=== PATIENT | female | born 1935 | race Caucasian/White ===

== ENCOUNTER 2017-07-27 23:35 | Observation (INO) | payer MEDICARE ==
[2017-07-28 01:18] LABS: INR-International Normal Ratio 1.1; PTT 28.7 SEC (22.9-36.1)
[2017-07-28] MEDS ORDERED: Nitroglycerin 2% Ointment 1 INCH/1 GM Packet ONE ×2 (01:27→01:28)
[2017-07-28 01:32] LABS: Troponin I 0.028 ng/mL (< 0.028)
[2017-07-28 02:46] LABS: Bilirubin Negative (Negative); Blood, Urine Negative (Negative); Clarity CLEAR (Clear); Glucose, Urine (Dipstick) Negative (Negative); Leukocyte Negative (Negative); Nitrite Negative (Negative); Protein, Urine (Dipstick) Negative (Neg-Trace); Urobilinogen 0.2 mg/dL (0.2-1.0); pH, Urine 6.5 (5.0-9.0)
[2017-07-28] MEDS ORDERED: Ondansetron ODT 4 MG TAB SL PRN (02:48)
[2017-07-28] MEDS ORDERED: Ondansetron HCl/PF 4 MG/2 ML Vial IVP PRN (02:48)
[2017-07-28 03:22] VITALS: BMI 43.9
[2017-07-28 03:36] LABS: Digoxin Less than 0.15 ng/mL (0.8-2.0)
[2017-07-28] MEDS ORDERED: Nitroglycerin 0.4 MG TAB (25 Tab Bottle) PO PRN (04:17)
[2017-07-28] MEDS ORDERED: Calcium Carbonate 500 MG ChewTAB PO PRN (04:21)
[2017-07-28] MEDS ORDERED: Ondansetron ODT 4 MG TAB PO PRN (04:21)
[2017-07-28] MEDS ORDERED: Senokot 8.6 MG TAB PO PRN (04:21)
[2017-07-28] MEDS ORDERED: Acetaminophen 325 MG TAB PO PRN (04:21)
[2017-07-28 05:01] LABS: Troponin I 0.022 ng/mL (< 0.028)
--- NOTE | 2017-07-28 05:37 | HP ---
DATE OF ADMISSION: 07/28/2017 PRIMARY CARE PHYSICIAN: Dr. Nuñez. PRIMARY CONTRACT PROGRAMMER: Dr. Lentz. CHIEF COMPLAINT: Shortness of breath. CODE STATUS: FULL CODE. SURROGATE DECISION MAKER: The patient makes her own decisions with the help of her family. HISTORY OF PRESENT ILLNESS: The patient is an 82-year-old female with chronic diastolic heart failure, obstructive sleep apnea on CPAP, chronic atrial fibrillation on anticoagulation, coronary artery disease, status post stent placement and sinus node dysfunction, status post pacemaker, presented to [facility] Emergency Room with shortness of breath of one week duration. The shortness of breath was mainly on mild to moderate exertion. She also noticed bilateral lower extremity swelling. The shortness of breath was also worse on lying flat. She has also gained around 8 pounds over the past one and a half weeks. She is compliant with fluid and salt restriction. The family realized that she was out of Aldactone over the last 2 weeks. Aldactone has been restarted 2 days ago. She also had some upper back discomfort that is more or less improved. In the emergency room at [place], her O2 saturation was 96% on room air with blood pressure 164/130, pulse rate of 79, respiration of 22. Her workup was consistent with congestive heart failure. She received 40 mg IV Lasix around 10 :00 p.m. At the time of my evaluation at 4:00 a.m., shortness of breath has significantly improved after that dose of Lasix. She denies any palpitations, chest pain, lightheadedness, dizziness or syncope. PAST MEDICAL HISTORY: 1. Chronic atrial fibrillation on anticoagulation. 2. Coronary artery disease, status post mid LAD stent placement. 3. Hypertension. 4. Obstructive sleep apnea on CPAP. 5. Sinus node dysfunction status post pacemaker. 6. Gastroesophageal reflux disease. 7. Dyslipidemia. 8. Hypertension. PAST SURGICAL HISTORY: 1. Cardiac stent placement as discussed above. 2. Pacemaker insertion. 3. Bladder suspension. ALLERGIES: The patient is allergic to PROCAINE. CURRENT HOME MEDICATIONS: Patient takes 40 mg of Lasix, Aldactone 12.5 mg daily , losartan 100 mg at bedtime, Eliquis 5 mg b.i.d., aspirin 81 mg at bedtime, Lipitor 40 mg daily, digoxin 0.125 mg daily, Lexapro 20 mg at bedtime. SOCIAL HISTORY: Patient currently lives at home. No smoking, alcohol or drug use. FAMILY HISTORY: Positive for diabetes in several family members. REVIEW OF SYSTEMS: The following complete review of systems was negative, unless otherwise mentioned in the HPI or below: Constitutional: Weight loss or gain, ability to conduct usual activities. Skin: Rash, itching. Eyes: Double vision, pain. ENT/Mouth: Nose bleeding, neck stiffness, pain, tenderness. Cardiovascular: Palpitations, dyspnea on exertion, orthopnea. Respiratory: Shortness of breath, wheezing, cough, hemoptysis, fever or night sweats. Gastrointestinal: Poor appetite, abdominal pain, heartburn, nausea, vomiting, constipation, or diarrhea. Genitourinary: Urgency, frequency, dysuria, nocturia. Musculoskeletal: Pain, swelling. Neurologic/Psychiatric: Anxiety, depression. Allergy/Immunologic: Skin rash, bleeding tendency. PHYSICAL EXAMINATION: VITAL SIGNS: As discussed above. GENERAL: An 82-year-old female in no significant respiratory distress. Over the last 6 hours, her symptoms have improved after one dose of Lasix in the ER. HEENT: Head is atraumatic, normocephalic. Sclerae are anicteric. Moist mucous membranes. No oral lesion. NECK: Supple, no JVD appreciated. No carotid bruit. LUNGS: Showed scattered bibasilar rales, no wheezing or rhonchi. Lungs were symmetrical. HEART: S1, S2 present. Regular rate and rhythm. No murmurs, rubs or gallops appreciated. ABDOMEN: Soft, nontender, bowel sounds present. EXTREMITIES: 2+ edema in bilateral lower extremities. No calf tenderness. SKIN: Warm and dry. LYMPH NODES: No palpable lymph nodes in the neck. PERIPHERAL VASCULAR: Radial pulses palpable bilaterally. MUSCULOSKELETAL: No joint swelling or tenderness. LABORATORY FINDINGS: CBC showed WBC 6.3 with hemoglobin 13.3. Creatinine was 0.8 with BUN 19. Troponins were negative. Urinalysis was negative. Digoxin level was less than 0.15. BNP was 236. Sodium was 143 with potassium 3.8. X-RAY FINDINGS: Chest x-ray by my review showed pulmonary vascular congestion. EKG by my review showed atrial fibrillation. IMPRESSION: 1. Acute on chronic diastolic heart failure exacerbation. The patient was out of Aldactone for 2 weeks. This has been restarted 2 days ago. We will continue IV diuretics for one more day. The patient can probably be discharged later today or in a.m. based on her improvement. We will monitor electrolytes closely. 2. Coronary artery disease, status post left anterior descending stent placement in 2007. We will continue aspirin. 3. Chronic atrial fibrillation on anticoagulation. We will continue digoxin. Rate appears to be controlled at this time. Continue anticoagulation. 4. Obstructive sleep apnea. We will continue home CPAP. 5. Sick sinus syndrome, status post pacemaker. 6. Hypertension. We will monitor. Her last blood pressure was 128/57. 7. Dyslipidemia. We will continue statins. 8. Chronic kidney disease stage 2. 9. Morbid Obesity BMI 43. Plan of care was discussed with the patient in detail and she stated understanding. SRI
[2017-07-28] MEDS ORDERED: Furosemide 40 MG/4 ML VIAL SLOW IVP SCH ×2 (06:00→09:00)
[2017-07-28] MEDS ORDERED: Nitroglycerin 2% Ointment 1 INCH/1 GM Packet TOP SCH (06:00)
[2017-07-28 06:04] LABS: Albumin 4.3 g/dL (3.4-4.8); Anion Gap 18 mmol/L (10-20); BUN (Urea Nitrogen) 19 mg/dL (9.8-20.1); BUN/Creatinine Ratio 21.35; Calc. Creatinine Clearance 89 mL/min (70-130); Calcium 9.9 mg/dL (7.8-10.44); Carbon Dioxide 27 mmol/L (23-31); Chloride 101 mmol/L (98-107); Estimated GFR-MDRD 61; Glucose 112 mg/dL (83-110); Magnesium 2.3 mg/dL (1.6-2.6); Phosphorus 4.4 mg/dL (2.3-4.7); Sodium 142 mmol/L (136-145)
[2017-07-28] MEDS ORDERED: Aspirin 325 MG TAB PO SCH (09:00)
[2017-07-28] MEDS ORDERED: Spironolactone 25 MG TAB PO SCH (09:00)
[2017-07-28] MEDS ORDERED: Apixaban 5 MG TAB PO SCH (09:00)
[2017-07-28] MEDS ORDERED: Furosemide 20 MG/2 ML VIAL SLOW IVP SCH (09:00)
[2017-07-28] MEDS ORDERED: Digoxin 0.125 MG TAB PO SCH (09:00)
[2017-07-28 11:36] VITALS: BP 110/58; TEMP 98.3
[2017-07-28 14:36] LABS: Anion Gap 16 mmol/L (10-20); BUN (Urea Nitrogen) 18 mg/dL (9.8-20.1); Calc. Creatinine Clearance 96 mL/min (70-130); Calcium 9.5 mg/dL (7.8-10.44); Carbon Dioxide 28 mmol/L (23-31); Chloride 100 mmol/L (98-107); Estimated GFR-MDRD 66; Glucose 133 mg/dL (83-110); Potassium 3.6 mmol/L (3.5-5.1); Sodium 140 mmol/L (136-145)
[2017-07-28] MEDS ORDERED: Losartan 25 MG TAB PO SCH (21:00)
[2017-07-28] MEDS ORDERED: Escitalopram Oxalate 20 mg Tablet PO SCH (21:00)
[2017-07-28] MEDS ORDERED: Atorvastatin Calcium 40 MG TAB PO SCH (21:00)
--- NOTE | 2017-07-28 23:25 | DIS ---
PRIMARY CARE PHYSICIAN: En Nuñez D.O. PRIMARY WEAVER TIRE CORD: Dr. Lentz. DISCHARGE DIAGNOSES: 1. Acute on chronic diastolic congestive heart failure. 2. Chronic atrial fibrillation. 3. Chronic anticoagulation use. 4. Coronary artery disease. 5. Hypertension. 6. Obstructive sleep apnea, on CPAP. 7. Sinus node dysfunction, status post pacemaker placement in the past. 8. Gastroesophageal reflux disease. 9. Hyperlipidemia. 10. Obesity. CONSULTATIONS: None. PROCEDURES: None. HISTORY AND PHYSICAL: Ms. Haines is an 82-year-old female with the above history, who had been out of her medications. She requested refills, but there was some miscommunication with the pharmacy and the doctor's offices. I was able to get it. She had an 8-pound weight loss and became more short o f breath. She has had increased lower extremity swelling and shortness of breath with dyspnea on exe rtion and orthopnea. She presented to the Emergency Department for evaluation. She was 96% on room air. Bowels are relatively stable, but labs showed a BNP of 236, otherwise normal labs, and she had a chest x-ray with pulmonary vascular congestion. We were called for admission. HOSPITAL COURSE: The patient was seen and examined early this morning by Dr. Pradhan, she was restarte d on her home medications after a dose of IV Lasix. Through the day, she had markedly improved and t his afternoon I was feeling back to her baseline. Repeat labs showed her potassium level to be cindy l after the IV Lasix and she was otherwise stable for outpatient followup. PHYSCIAL EXAMINATION: The patient was seen and examined on the day of discharge. DISCHARGE PLAN: Disposition was discussed with the patient and her daughter face to face at the [facility]. DISCHARGE MEDICATIONS: 1. Eliquis 5 mg p.o. b.i.d. 2. Aspirin 81 mg p.o. at bedtime. 3. Lipitor 40 mg p.o. at bedtime. 4. Lanoxin 0.125 mg p.o. daily. 5. Docusate as needed. 6. Lasix 40 mg daily. 7. Acidophilus/pectin 1 tablet daily. 8. Lecithin 1200 mg p.o. daily. 9. Spironolactone 12.5 mg p.o. daily. 10. CoQ10. 11. Vitamin B complex 1 tablet daily. FOLLOWUP APPOINTMENTS: 1. Primary care physician, Dr. Nuñez in a week. 2. Dr. Marko Lentz in a couple weeks for his clinic schedule. DISCHARGE DIET: Heart healthy recommended. DISCHARGE ACTIVITY: Per cardiopulmonary limits. DISCHARGE CONDITION: Stable/good. DISPOSITION: Be discharged home via private vehicle with family.
--- NOTE | 2017-08-03 15:15 | EKG ---
Test Reason : REPEAT Blood Pressure : / mmHG Vent. Rate : 085 BPM Atrial Rate : 075 BPM P-R Int : 000 ms QRS Dur : 088 ms QT Int : 398 ms P-R-T Axes : 000 056 008 degrees QTc Int : 473 ms Atrial fibrillation with premature ventricular or aberrantly conducted complexes Abnormal ECG Confirmed by FE BARRIENTOS, OMI ([id number]), associate entertainment editor RONI RODRÍGUEZ ([id number]) on 08/03/2017 3:14:27 PM Referred By: Confirmed By:OMI MIRAMONTES MD
== END 2017-07-28 15:38 | disposition home or self-care (01) ==
LOC: ERS 23:35 → 2SW 07-28 00:43
PROVIDERS: ADMIT Internal Medicine; ATTEND Internal Medicine
DX: I13.0 Hypertensive heart and chronic kidney disease with heart failure and stage 1 through stage 4 chronic kidney disease, or unspecified chronic kidney disease (principal); N18.2 Chronic kidney disease, stage 2 (mild); I50.33 Acute on chronic diastolic (congestive) heart failure; I48.2 Chronic atrial fibrillation; I49.5 Sick sinus syndrome; I25.10 Atherosclerotic heart disease of native coronary artery without angina pectoris; G47.33 Obstructive sleep apnea (adult) (pediatric); K21.9 Gastro-esophageal reflux disease without esophagitis; E78.5 Hyperlipidemia, unspecified; E66.9 Obesity, unspecified; Z68.41 Body mass index [BMI] 40.0-44.9, adult; Z88.8 Allergy status to other drugs, medicaments and biological substances; Z79.01 Long term (current) use of anticoagulants; Z79.899 Other long term (current) drug therapy; Z95.5 Presence of coronary angioplasty implant and graft; Z98.890 Other specified postprocedural states; Z99.89 Dependence on other enabling machines and devices
CPT/HCPCS: 80048; 80069; 80162; 81003; 83735; 84484 ×2; 85610; 85730; 93005; 93798; 96374; 99285; G0378; 36415; J1940

== ENCOUNTER 2017-10-14 12:34 | Emergency (ER) | payer MEDICARE ==
[2017-10-14 13:11] LABS: #Basophils 0.1 thou/uL (0.0-0.2); #Eosinphils 0.1 thou/uL (0.0-0.7); #Monocytes 0.6 thou/uL (0.11-0.59); #Neutrophils 5.9 thou/uL (1.40-6.50); %Basophils 0.6 % (0.0-1.0); %Eosinophils 0.7 % (0.0-10.0); %Lymphocytes 23.3 % (21.0-51.0); %Monocytes 6.5 % (0.0-10.0); %Neutrophils 68.9 % (42.0-75.0); Hemoglobin 14.1 g/dL (12.0-16.0); Mean Corpuscular HGB CONC 32.7 g/dL (32.0-36.0); Mean Corpuscular Hemoglobin 31.6 pg (27.0-31.0); Mean Corpuscular Volume 96.6 fl (81.0-99.0); Mean Platelet Volume 6.6 fL (7.4-10.4); Platelet Count 229 thou/uL (130-400); RBC Distribution Width 14.2 % (11.5-14.5); Red Blood Cell (RBC) Count 4.48 mill/uL (4.20-5.40); White Blood Cell (WBC) Count 8.6 thou/uL (4.8-10.8)
[2017-10-14 13:24] LABS: Bilirubin Negative (Negative); Blood, Urine Negative (Negative); Clarity CLEAR (Clear); Glucose, Urine (Dipstick) Negative (Negative); Leukocyte Negative (Negative); Nitrite Negative (Negative); Protein, Urine (Dipstick) Negative (Neg-Trace); Specific Gravity, Urine 1.024 (1.002-1.036)
[2017-10-14 13:38] LABS: ALT (SGPT) 24 U/L (8-55); AST (SGOT) 24 U/L (5-34); Albumin 4.1 g/dL (3.4-4.8); Alkaline Phosphatase 86 U/L (40-150); Anion Gap 12 mmol/L (10-20); BUN (Urea Nitrogen) 25 mg/dL (9.8-20.1); Bilirubin, Total 0.9 mg/dL (0.2-1.2); Calc. Creatinine Clearance 0 mL/min (70-130); Calcium 9.7 mg/dL (7.8-10.44); Carbon Dioxide 26 mmol/L (23-31); Chloride 103 mmol/L (98-107); Estimated GFR-MDRD 57; Globulin 2.9 g/dL (2.4-3.5); Glucose 89 mg/dL (83-110); Sodium 137 mmol/L (136-145)
[2017-10-14 13:43] LABS: CKMB 3.2 ng/mL (0-6.6); Troponin I 0.016 ng/mL (< 0.028)
[2017-10-14] MEDS ORDERED: ISOVUE-370 76%-LOCM 1 ML ONE (14:49)
--- NOTE | 2017-10-14 14:54 | RAD ---
SINGLE VIEW CHEST: Date: 10/14/17 COMPARISON: 07/27/17. HISTORY: Back pain and flank pain. FINDINGS: Single view of the chest shows normal sized cardiomediastinal silhouette. The pacemaker is unchanged in position. There is no evidence of consolidation, mass, or pleural effusion. IMPRESSION: No evidence of acute cardiopulmonary disease. POS: [facility]
--- NOTE | 2017-10-14 15:26 | CT ---
CTA AORTIC DISSECTION PROTOCOL UTILIZING IV CONTRAST AND 3D REFORMATTED IMAGING: FINDINGS: No acute aortic stenosis, occlusion, or aneurysmal formation is demonstrated. The origins of the gre at vessels are patent. The celiac artery demonstrates some mild narrowing at the origin. There is s ome mild narrowing involving the SMA origin. Renal arteries are patent. JAMES is patent. There is a moderate-sized hiatal hernia. There are coronary artery and thoracic aorta calcifications . There is scattered emphysematous change. There are areas of subsegmental volume loss. No pleural effusion is evident. There is a stable left hepatic lobe cyst. Pancreas, adrenal glands, and splee n appear within normal limits. Kidneys are unremarkable-appearing. No lymphadenopathy is evident. No acute osseous abnormality is demonstrated. IMPRESSION: 1. No acute aortic stenosis, occlusion, or aneurysmal formation demonstrated. 2. Mild celiac and SMA origin narrowing. POS: [facility]
== END 2017-10-14 15:51 | disposition home or self-care (01) ==
LOC: ERS 12:34
DX: M54.6 Pain in thoracic spine (principal); B02.9 Zoster without complications; I48.91 Unspecified atrial fibrillation; I11.0 Hypertensive heart disease with heart failure; I50.9 Heart failure, unspecified; E78.5 Hyperlipidemia, unspecified; I25.10 Atherosclerotic heart disease of native coronary artery without angina pectoris; G47.30 Sleep apnea, unspecified; F41.9 Anxiety disorder, unspecified; F32.9 Major depressive disorder, single episode, unspecified; Z79.01 Long term (current) use of anticoagulants; Z79.82 Long term (current) use of aspirin; Z79.899 Other long term (current) drug therapy
CPT/HCPCS: 36415; 71045; 71275; 80053; 81003; 82553; 83880; 84484; 85025; 93005

== ENCOUNTER 2018-05-08 21:07 | Observation (INO) | payer MEDICARE ==
[2018-05-08] MEDS ORDERED: Nitroglycerin 2% Ointment 1 INCH/1 GM Packet ONE (22:15)
[2018-05-08 22:45] LABS: Troponin I Less than 0.010 ng/mL (< 0.028)
[2018-05-08 22:47] LABS: Bilirubin Negative (Negative); Blood, Urine Negative (Negative); Clarity CLEAR (Clear); Glucose, Urine (Dipstick) Negative (Negative); Leukocyte Small (Negative); Nitrite Negative (Negative); Protein, Urine (Dipstick) Negative (Neg-Trace); Specific Gravity, Urine 1.008 (1.002-1.036); Urobilinogen 0.2 mg/dL (0.2-1.0)
[2018-05-08 22:49] LABS: Bacteria/HPF None Seen HPF (None Seen); Hyaline Casts/LPF 4-6 HYALINE CAST LPF (0-3 Hyaline); Pathc Cast-AUWi Flag 0.72 (0-2.49); RBC/HPF 0-3 HPF (0-3); Squamous Epithelial 0-3 HPF (0-3)
[2018-05-09 00:32] VITALS: BMI 42.5
[2018-05-09] MEDS: Sodium Chloride 0.9% 1,000 ML IV SCH ×2 (01:43→17:51)
[2018-05-09 02:13] LABS: Troponin I Less than 0.010 ng/mL (< 0.028)
[2018-05-09 02:18] LABS: Cardiac Risk 2.7 (Less than 4.5)
[2018-05-09] MEDS: Nitroglycerin 2% Ointment 1 INCH/1 GM Packet TOP SCH ×2 (06:58→14:02)
[2018-05-09] MEDS: Metoprolol Tartrate 25 MG TAB PO SCH ×2 (06:59→12:49)
--- NOTE | 2018-05-09 07:41 | HP ---
CHIEF COMPLAINT: Chest pain. HISTORY OF PRESENT ILLNESS: This is an 83-year-old female with past medical history of atrial fibrillation; diastolic congestive heart failure; coronary artery disease, status post stents and pacemaker; hyperlipidemia; hypertension; sleep apnea; presenting with chest pain which is located substernal and radiates to the patient's back. The patient states that chest pain has been ongoing for 1 week and the pain is pressure-like in sensation, 10/10 when pain first came on and eventually subsided to 5/10. The patient stated that she was okay when the chest pain came, she thought that the chest pain was going to resolve on its own; however, she threw up today and because she threw up that prompted the ED visit. The patient stated that she feels like maybe she has a hernia maybe in her chest and because of the hernia that is why she is probably getting the chest pain and sometimes she also burps during this chest pain. The patient denies any fever, chills, shortness of breath, palpitations, abdominal pain, but admits to chest pressure. Of note, the patient's last stress test was 2002. REVIEW OF SYSTEMS: Positive for chest pressure with associated symptoms of vomiting, otherwise as documented in the HPI, all systems are reviewed and are negative. PAST MEDICAL HISTORY: Chronic atrial fibrillation; coronary artery disease, status post stents; hypertension; status post pacemaker; hyperlipidemia; obstructive sleep apnea; GERD. FAMILY HISTORY: Reviewed and noncontributory to this visit. PAST SURGICAL HISTORY: Pacemaker, cardiac stents x1, right ankle surgery, bladder suspension. PSYCHIATRIC HISTORY: No previous psychiatric history. SOCIAL HISTORY: The patient denies alcohol use. The patient denies illicit drug use and patient denies any smoking history. ALLERGIES: NOVOCAIN, PROCAINE. CURRENT MEDICATIONS: The patient takes Lexapro 20 mg, losartan 100 mg, metoprolol tartrate 25 mg, atorvastatin 40 mg, Eliquis 5 mg, Lasix 40 mg, spironolactone 25 mg, aspirin 81 mg, valacyclovir 1000 mg. PHYSICAL EXAMINATION: VITAL SIGNS: Blood pressure is 156/99, pulse of 101, respiratory rate of 18, temperature of 97.6, O2 sat of 99. GENERAL: The patient is lying in bed comfortably, does not appear to be in any acute distress. The patient is moving freely, spontaneously, and able to answer questions. HEENT: Normocephalic, atraumatic. Pupils are equally round and reactive to light. Extraocular movements are intact. No scleral icterus. No conjunctival pallor. Mucous membranes are moist. NECK: Supple, full range of motion. Trachea is midline. LUNGS: Clear to auscultation bilaterally. No wheezing, no rales, no rhonchi appreciated. CARDIOVASCULAR: Positive S1, S2. Regular rate and rhythm. No murmurs, no gallops, no rubs appreciated. ABDOMEN: Soft, nontender, nondistended, obese abdomen, positive bowel sounds in all quadrants. EXTREMITIES: The patient has 5/5 upper extremity strength and 5/5 lower extremity strength. NEUROLOGIC: Cranial nerves II-XII grossly intact. No neurologic deficits noted. SKIN: Warm, dry, and intact. PSYCHIATRIC: Alert, oriented x3, not in acute distress. Normal affect. EKG: Shows atrial fibrillation with a rate of 100. ED COURSE: The patient received nitro 0.5 inch transdermal. LABORATORY DATA: WBC 7.5, hemoglobin 13.8, hematocrit 43.5, platelet count is 206. Electrolytes: Sodium is 143, potassium is 4.5, chloride is 103, carbon dioxide of 28, anion gap of 17, BUN is 26, creatinine is 1.35, GFR is 38. BNP is 148.3. Troponin is less than 0.010. Lipase is 22. ASSESSMENT AND PLAN: This is an 83-year-old female being admitted for: 1. Chest pain, rule out acute coronary syndrome. The patient's chest pain is reproducible at the sternal region. At this point, we will give the patient pain medication. We will continue to treat the patient conservatively. We have ordered echo and we have ordered for stress test. We have also consulted Cardiology. At this time, we will follow up with Cardiology's recommendations and we will follow up on the test results. 2. Acute kidney injury. We will monitor the patient's creatinine. The patient will benefit from gentle hydration. 3. Diastolic congestive heart failure. We will continue the patient on her home medications. The patient was recently admitted to our hospital in 2017. The patient was treated for acute on chronic congestive heart failure. At this point, the patient is not in failure. We will continue to monitor the patient. 4. Coronary artery disease, status post stents, currently stable. We will continue the patient on her current management. 5. Chronic atrial fibrillation. We will continue the patient on her home medications. 6. Hypertension, currently stable. We will continue the patient on her home medications. 7. Obstructive sleep apnea. The patient has her CPAP machine by bedside. We will continue patient on her CPAP. 8. Gastroesophageal reflux disease. We will continue the patient on her proton pump inhibitors. 9. Hyperlipidemia. Continue patient on current medications. 10. Deep venous thrombosis and gastrointestinal prophylaxis. [facility]
[2018-05-09 08:10] VITALS: TEMP 97.2
[2018-05-09] MEDS ORDERED: Apixaban 5 MG TAB PO SCH (09:00)
[2018-05-09] MEDS ORDERED: Amiodarone 200 MG TAB PO SCH (09:00)
[2018-05-09] MEDS ORDERED: Pantoprazole 40 MG GRANULES PACKET PO SCH (09:00)
[2018-05-09 13:23] LABS: Anion Gap 10 mmol/L (10-20); BUN (Urea Nitrogen) 24 mg/dL (9.8-20.1); Calc. Creatinine Clearance 68 mL/min (70-130); Carbon Dioxide 28 mmol/L (23-31); Chloride 105 mmol/L (98-107); Estimated GFR-MDRD 47; Potassium 4.3 mmol/L (3.5-5.1); Sodium 139 mmol/L (136-145)
[2018-05-09 13:24] LABS: Calcium 9.2 mg/dL (7.8-10.44); Glucose 114 mg/dL (83-110)
[2018-05-09] MEDS ORDERED: Ketorolac Tromethamine 30 MG/ML VIAL IVP SCH (15:45)
--- NOTE | 2018-05-09 16:12 | NM ---
CARDIAC SPECT: HISTORY: An 83-year-old female with chest pain, atrial fibrillation, coronary artery disease, stent placement, hypertension, dyslipidemia, and CHF. TECHNIQUE: A stress only myocardial perfusion scan was performed following the intravenous administration of 28 millicuries of technetium 99m sestamibi, injected intravenously. Pharmacologic stress with adenosine was monitored and interpreted by Dr. Butt. FINDINGS: Homogeneous tracer distribution is seen in the myocardial segments on the post stress images. GATED SPECT LVEF: 72% WALL MOTION EXAM: Normal. IMPRESSION: Normal post stress myocardial perfusion scan. POS: [facility]
[2018-05-09] MEDS ORDERED: Metoprolol Tartrate 25 MG TAB PO SCH ×2 (16:15→21:00)
[2018-05-09] MEDS ORDERED: Benzonatate 100 MG CAP PO SCH (16:45)
[2018-05-09] MEDS ORDERED: Guaifenesin DM 100-10/5 ML UDCUP PO SCH (17:00)
--- NOTE | 2018-05-09 17:42 | PRG ---
DATE OF SERVICE: 05/09/2018 SUBJECTIVE: Ms. Haines came to the hospital complaining of chest pain. The patient had really two different varieties of chest pain. One type of chest pain was associated with some nausea and belchi ng. It was retrosternal and across her chest. In addition to that, she has some pain. It hurts whe n she takes a breath or coughs or presses on her chest. The pressure type sensation has gone away, b ut she still has soreness in her chest, it hurts when you press on her chest. PAST MEDICAL HISTORY: She has a history of coronary artery disease with previous stent implantation in the left anterior descending artery. The most recent cardiac catheterization does reveal that she had a patent stent with some stenosis in a very small diameter vessel. Distally, it would be a very poor candidate for intervention, but 50% narrowing after the stent supplied a small diameter LAD and diagonal branch. Consideration for surgery is even given and it was decided that surgery would not be appropriate. The patient does have a history of esophageal reflux with hiatal hernia. MEDICATIONS AT HOME: She has been taken amiodarone 200 mg a day, aspirin 81 mg a day, Eliquis 5 mg t wice a day, Lipitor 40 mg a day, metoprolol 25 mg tablet half pill twice a day, spironolactone, torse mide, Protonix, but she stopped taking that at some point. ALLERGIES: PROCAINE. REVIEW OF SYSTEMS: CONSTITUTIONAL: No significant weight gain or loss. VISION: No changes. HEARI NG: No changes. PULMONARY: No cough or wheezing. GASTROINTESTINAL: As outlined above. SKIN: No rashes. PHYSICAL EXAMINATION: GENERAL APPEARANCE: On examination, this is a pleasant elderly woman in no distress. VITAL SIGNS: Blood pressure is 117/63, pulse 96 irregular. She is obese, BMI is 42, 5 foot and 3 in ches tall, 240 pounds. LUNGS: Clear. CARDIAC: Irregularly irregular. ABDOMEN: Soft, nontender. EXTREMITIES: No clubbing or cyanosis. There is no edema. IMAGING DATA AND LABORATORY DATA: All the cardiac enzymes are negative and a stress test was negativ e. Creatinine level is 1.35 on admission. ASSESSMENT: Two different varieties of chest pain what appears to be gastrointestinal related to ref lux. The other is musculoskeletal. PLAN: 1. She has been on Protonix. 2. Gave her a dose of Toradol. 3. Pacemaker is being interrogated. If she is in chronic atrial fibrillation, we will increase meto prolol up to 25 mg twice a day and reduce amiodarone to 100 mg a day. Ultimately, we would like to w robbie her off the amiodarone, try to control heart rate with beta blockers and calcium blockers if need ed. Try to minimize dose of calcium yosef. She probably has some element of diastolic heart failu re. BNP was 148 indicating some element of diastolic heart failure. She has had a BNP as high as 23 6 in the past.
[2018-05-09 17:56] VITALS: BP 126/82
[2018-05-09] MEDS ORDERED: Aspirin 325 MG TAB PO SCH (21:00)
[2018-05-09] MEDS ORDERED: Escitalopram Oxalate 20 mg Tablet PO SCH (21:00)
[2018-05-09] MEDS ORDERED: Atorvastatin Calcium 40 MG TAB PO SCH (21:00)
--- NOTE | 2018-05-10 21:24 | DIS ---
DATE OF ADMISSION: 05/08/2018 DATE OF DISCHARGE: 05/09/2018 DISCHARGE DIAGNOSES: 1. Chest pain. 2. Costochondritis. 3. Hiatal hernia. 4. Gastroesophageal reflux. 5. Chronic atrial fibrillation. 6. History of coronary artery disease. HISTORY: Patient is an 83-year-old female who presented via the emergency department complaining of chest pain with some associated nausea and belching. It was somewhat increased with deep breath and she had some tenderness in the chest area to palpation. The patient's initial workup was notable for negative troponins. She did have some tenderness over the chest wall area. HOSPITAL COURSE: The patient was admitted to the hospital on telemetry and observation. She had a [facility] medicine stress test performed which was negative. She also had an echocardiogram performed w [facility] revealed EF of 55%-60%. She was in atrial fibrillation and she had moderate to severe tricuspid regurg and severely elevated pulmonary artery pressures at 54 mmHg and some evidence of diastolic he art failure. The patient's exam was notable for significant tenderness to palpation over the xiphoid . Review of her records did reveal the patient had previously had a hiatal hernia seen on CAT scan. Dr. Lentz saw the patient in consultation. We discussed the case and both agreed that this appeare d to be more musculoskeletal and possibly GI related and noncardiac. With that the patient was stabl e for discharge home. PHYSICAL EXAMINATION: On date of discharge: VITAL SIGNS: Temperature 97.2, pulse 77, BP 126/82, respirations 20, O2 sat 92%. GENERAL APPEARANCE: Age appropriate female, morbidly obese, awake, alert, oriented, pleasant, sylvia ative, no distress. HEART: Regular without murmurs. LUNGS: Slightly diminished at the bases likely secondary to habitus, but otherwise clear. ABDOMEN: Soft, nontender, nondistended, positive bowel sounds. There was significant tenderness to palpation at the xiphoid, but no anatomic abnormalities noted. EXTREMITIES: Warm and dry without significant edema. DISPOSITION: The patient is discharged to home. DISCHARGE MEDICATIONS: She will be on a regular low acid diet. She will be on amiodarone with reduc ed dose of 100 mg p.o. daily, Meloxicam 7.5 mg every day, metoprolol 25 mg b.i.d. She will continue her usual Lexapro 20 mg at bedtime, aspirin 81 mg every day, Eliquis 5 mg b.i.d., Aldactone 25 mg b.i .d., docusate every day, atorvastatin 40 mg at bedtime, torsemide 20 mg b.i.d., Probiotic 1 at bedtim e, multivitamin 1 every day, Protonix 40 mg every day. She will discontinue the ranitidine and amiod arone at 200 mg as well as the metoprolol 12.5 mg. She is to follow up with Dr. Nuñez and with Dr. Lentz. She can return to the emergency departme should she have any problems prior to that time.
== END 2018-05-09 17:58 | disposition home or self-care (01) ==
LOC: ERS 21:07 → 2SW 23:45
PROVIDERS: ADMIT Internal Medicine; ATTEND Internal Medicine
DX: R07.89 Other chest pain (principal); M94.0 Chondrocostal junction syndrome [Tietze]; K44.9 Diaphragmatic hernia without obstruction or gangrene; K21.9 Gastro-esophageal reflux disease without esophagitis; I48.2 Chronic atrial fibrillation; I11.0 Hypertensive heart disease with heart failure; I50.30 Unspecified diastolic (congestive) heart failure; I25.10 Atherosclerotic heart disease of native coronary artery without angina pectoris; E78.5 Hyperlipidemia, unspecified; G47.33 Obstructive sleep apnea (adult) (pediatric); N17.9 Acute kidney failure, unspecified; Z79.01 Long term (current) use of anticoagulants; Z79.82 Long term (current) use of aspirin; Z79.899 Other long term (current) drug therapy; Z88.4 Allergy status to anesthetic agent; Z95.1 Presence of aortocoronary bypass graft; Z95.5 Presence of coronary angioplasty implant and graft
CPT/HCPCS: 78452; 80048; 80061; 83690; 84484 ×2; 93005; 93017; 94760 ×2; 96374; 99285; A9500; G0378 ×2; 36415; 81003; 81015; J0153; J1885

== ENCOUNTER 2018-12-13 16:27 | Inpatient (IN) | payer MEDICARE ==
[2018-12-13] MEDS ORDERED: Ondansetron ODT 4 MG TAB SL PRN (19:56)
[2018-12-13] MEDS ORDERED: Ondansetron PF 4 MG/2 ML Vial IVP PRN (19:56)
[2018-12-13] MEDS ORDERED: HumaLOG 300 UNITS/3 ML VIAL SC PRN (20:47)
[2018-12-13] MEDS ORDERED: Dextrose 50% Abboject 50 ML SYRINGE SLOW IVP PRN (20:47)
[2018-12-13] MEDS ORDERED: Dextrose 5% in Water 1,000 ML IV PRN (20:47)
--- NOTE | 2018-12-13 21:53 | HP ---
PRIMARY CARE DOCTOR: Dr. En Nuñez. CODE STATUS: Full code. TIME OF EVALUATION: 08:10 p.m. CHIEF COMPLAINT: Coughing up blood. HISTORY OF PRESENT ILLNESS: This is an 83-year-old female patient with past medical history of CHF, pacemaker, atrial fibrillation on Eliquis, hypertension, hyperlipidemia, diabetes, came to the hospital after having rather worsening shortness of breath and cough with congestion. The symptoms have been present for the past week and has been gradually getting worse. She was on Augmentin and the symptoms have no resolution. Today she started having bloody sputum, since she is on Eliquis. She decided to come to the hospital. Her symptoms were reported as moderate, likely triggered by underlying infection. No alleviating factors. REVIEW OF SYSTEMS: CONSTITUTIONAL: No fever, chills, or generalized weakness. RESPIRATORY: The patient has cough and sputum production that is some bloody. No shortness of breath. CARDIOVASCULAR: No chest pain on palpitation. GASTROINTESTINAL: No nausea. No vomiting, diarrhea, or abdominal pain. EXERCISE TEACHER: No dizziness, headache, or feeling lightheaded. GENITOURINARY: No burning on urination. EXTREMITIES: No leg swelling. All other systems were reviewed and negative except for the findings mentioned above. PAST MEDICAL HISTORY: As mentioned in the HPI. FAMILY HISTORY:Reviewed and no contributory for current presentation. PAST SURGICAL HISTORY: Pacemaker, cardiac stent x1 right ankle, bladder suspension. PSYCHIATRIC HISTORY: No previous psych history. SOCIAL HISTORY: No drugs. No smoking history. No alcohol abuse. KNOWN ALLERGIES: Novocaine. REPORTED MEDICATIONS: 1. Lexapro. 2. Metoprolol. 3. Atorvastatin. 4. Eliquis. 5. Spironolactone. 6. Aspirin. 7. Torsemide. 8. Metformin. PHYSICAL EXAMINATION: VITAL SIGNS: On presentation, blood pressure 164/94 with heart rate 82, respiratory rate was 18. Pain 0/10. Oxygen saturation was 96% on room air. GENERAL APPEARANCE: She is alert, oriented, not in acute distress. HEENT: Eyes, normal conjunctivae. Moist oral mucosa. Anicteric. No JVD. RESPIRATORY: Bilateral air entry. No rales. No wheezes. Symmetric expansion. CARDIOVASCULAR: Normal rate and regular rhythm. No murmurs. No gallop. No edema. ABDOMEN: Soft. Normal bowel sounds. MUSCULOSKELETAL: Baseline range of motion and strength. SKIN: Warm and intact. No pallor. No rash. No redness. Peripheral pulses are present. Capillary refill seems to be intact. NEURO: No evidence of any new focal weakness. Cranial nerve seems to be intact. PSYCH: The patient is in good mood. No anxiety. Optimal judgment. DIAGNOSTIC STUDIES: EKG was reviewed. The patient has electronic ventricular pacemaker at the rate of 72 with QRS 150, QT corrected 452. The chest x-ray shows haziness in the left mid lung zone and some increased opacity around the right ilium. Early infection is possible. This needs to be follow after resolution. If further concern is present, we will need the CT. LABORATORY DATA: The patient has negative troponin. White count was 10.9, hemoglobin 12.5, and platelet count 232. Coagulation 16.7 and INR 1.3. Chemistry: Sodium 142, potassium 4.3, chloride 100, carbon dioxide 29, anion gap 17, BUN 24 , GFR 64, creatinine 0.8, and glucose 118. Lactic acid 2.7. LFTs were negative. Urine was done, it was negative. ASSESSMENT AND PLAN: The patient will be placed in the hospital with following medical problems. 1. Left mid lung zone infection. This is a possible community-acquired pneumonia complicated with hemoptysis in the patient, the reason Eliquis. We will start the patient on antibiotics. The patient has failure to infection prior to admission. However, we will consult Pulmonary. The patient has seen Dr. Vazquez in the past reportedly. 2. History of atrial fibrillation, this is a chronic problem, is controlled. Reconcile home medications, adjust treatment as needed. 3. Hyperlipidemia. Low-cholesterol diet is advised. Reconcile home medications. 4. History of congestive heart failure. This is chronic, stable, reconcile home medications. 5. History of diabetes. We will reconcile home medications. Start the patient on sliding scale. Job ID: [id number] [facility]
[2018-12-13] MEDS ORDERED: cefTRIAXone\\ROCEPHIN 1 GM in Sodium Chloride 0.9% 100 ML IVPB SCH (23:00)
[2018-12-13] MEDS ORDERED: Docusate 100 MG CAP PO PRN (23:40)
[2018-12-13] MEDS ORDERED: Simethicone Chewable 80 MG TAB PO PRN (23:40)
[2018-12-14 03:05] VITALS: BMI 38.7
[2018-12-14 05:54] LABS: #Eosinphils 0.1 thou/uL (0.0-0.7); #Lymphocytes 1.3 thou/uL (1.20-3.40); #Monocytes 0.5 thou/uL (0.11-0.59); #Neutrophils 4.9 thou/uL (1.40-6.50); %Basophils 0.1 % (0.0-1.0); %Eosinophils 0.8 % (0.0-10.0); %Lymphocytes 19.4 % (21.0-51.0); %Monocytes 7.7 % (0.0-10.0); Mean Corpuscular HGB CONC 31.6 g/dL (32.0-36.0); Mean Corpuscular Hemoglobin 31.1 pg (27.0-31.0); Mean Corpuscular Volume 98.4 fL (78.0-98.0); Mean Platelet Volume 6.7 fL (7.4-10.4); Platelet Count 181 thou/uL (130-400); RBC Distribution Width 13.6 % (11.5-14.5); Red Blood Cell (RBC) Count 3.87 mill/uL (4.20-5.40); White Blood Cell (WBC) Count 6.9 thou/uL (4.8-10.8)
[2018-12-14 06:24] LABS: Anion Gap 13 mmol/L (10-20); BUN (Urea Nitrogen) 29 mg/dL (9.8-20.1); Calc. Creatinine Clearance 78 mL/min (70-130); Calcium 9.4 mg/dL (7.8-10.44); Carbon Dioxide 31 mmol/L (23-31); Chloride 101 mmol/L (98-107); Estimated GFR-MDRD 60; Glucose 108 mg/dL (83-110); Potassium 4.4 mmol/L (3.5-5.1); Sodium 141 mmol/L (136-145)
[2018-12-14] MEDS ORDERED: Nitroglycerin 0.4 MG TAB (25 Tab Bottle) SL PRN (07:54)
[2018-12-14] MEDS ORDERED: Sodium Chloride 0.65% Nasal 44 ML BOT EA NARE PRN (07:55)
[2018-12-14] MEDS ORDERED: Loperamide HCl 2 MG CAP PO PRN (07:55)
[2018-12-14] MEDS ORDERED: Bisacodyl 10 MG SUPP PR PRN (07:55)
[2018-12-14] MEDS ORDERED: Senokot S 8.6-50 MG TAB PO PRN (07:55)
[2018-12-14] MEDS ORDERED: hydrALAZINE 20 MG/ML VIAL SLOW IVP PRN (07:55)
[2018-12-14] MEDS ORDERED: Cepastat Lozenges 1 LOZ PO PRN (07:55)
[2018-12-14] MEDS ORDERED: Zolpidem Tartrate 5 MG TAB PO PRN (07:55)
[2018-12-14] MEDS ORDERED: Diabetic Tussin 200 MG/10 ML UDCUP PO PRN (07:55)
[2018-12-14] MEDS ORDERED: Loratadine 10 MG TAB PO PRN (07:55)
[2018-12-14] MEDS ORDERED: Artificial Tears 18 DROP/0.9 ML EA EYE PRN (07:55)
[2018-12-14] MEDS: Metoprolol Tartrate 50 MG TAB PO SCH ×2 (08:19→20:42)
[2018-12-14] MEDS: Escitalopram Oxalate 20 mg Tablet PO SCH (08:20)
[2018-12-14] MEDS: Digoxin 0.125 MG TAB PO SCH (08:20)
[2018-12-14] MEDS: Spironolactone 25 MG TAB PO SCH ×2 (08:28→15:27)
[2018-12-14] MEDS: Torsemide 20 MG TAB PO SCH ×2 (08:55→15:27)
--- NOTE | 2018-12-14 12:28 | PDOC.PN ---
- Subjective Encounter Start Date: 12/14/18 Encounter Start Time: 09:45 Patient seen and examined. No new complaints. No overnight events - Objective Resuscitation Status - Order Detail: 12/13/18 20:19 Resuscitation Status Routine Resuscitation Status: FULL: Full Resuscitation MAR Reviewed: Yes Vital Signs & Weight: Vital Signs (12 hours) Temp Pulse Resp BP BP Pulse Ox 12/14/18 11:00 97.3 F L 73 17 107/63 93 L 12/14/18 10:20 85 16 95 12/14/18 08:20 82 12/14/18 08:00 97 12/14/18 07:43 90 16 95 12/14/18 07:29 97.3 F L 81 20 145/81 H 97 12/14/18 04:00 97.3 F L 74 18 135/80 97 12/14/18 03:53 98 Weight Weight 222 lb I&O: 12/13/18 12/14/18 12/15/18 06:59 06:59 06:59 Intake Total 490 Balance 490 Result Diagrams: 12/14/18 05:43 12/14/18 05:43 Additional Labs: Accuchecks 12/14/18 12/14/18 12/13/18 11:46 04:23 20:08 POC Glucose 123 H 110 112 H Phys Exam - Physical Examination Constitutional: NAD HEENT: PERRLA, moist MMs, sclera anicteric Neck: no JVD, supple Respiratory: no wheezing, no rhonchi left sided rales Cardiovascular: RRR, no significant murmur, no rub Gastrointestinal: soft, non-tender, no distention, positive bowel sounds Musculoskeletal: no edema, pulses present Neurological: non-focal, normal sensation, moves all 4 limbs Lymphatic: no nodes Psychiatric: normal affect, A&O x 3 Skin: no rash, normal turgor Dx/Plan (1) Community acquired bacterial pneumonia Code(s): J15.9 - UNSPECIFIED BACTERIAL PNEUMONIA Status: Acute (2) Anxiety and depression Code(s): F41.9 - ANXIETY DISORDER, UNSPECIFIED; F32.9 - MAJOR DEPRESSIVE DISORDER, SINGLE EPISODE, UNSPECIFIED Status: Chronic (3) Atrial fibrillation Code(s): I48.91 - UNSPECIFIED ATRIAL FIBRILLATION Status: Chronic (4) Chronic anticoagulation Code(s): Z79.01 - JAIL (CURRENT) USE OF ANTICOAGULANTS Status: Chronic (5) Chronic stage c diastolic heart failure Code(s): I50.32 - CHRONIC DIASTOLIC (CONGESTIVE) HEART FAILURE Status: Chronic (6) Dyslipidemia Code(s): E78.5 - HYPERLIPIDEMIA, UNSPECIFIED Status: Chronic (7) Hypertension Code(s): I10 - ESSENTIAL (PRIMARY) HYPERTENSION Status: Chronic (8) Obesity (BMI 30-39.9) Code(s): E66.9 - OBESITY, UNSPECIFIED Status: Chronic - Plan cont current plan of care, plan discussed w/ family, continue antibiotics, respiratory therapy * medication reviewed as below * symptomatic treatment. * pulmonary consulted * currently on rocephin and azithromycin * reconciled her selected home meds * on hold anticoagulant due to hemoptysis Review of Systems - Review of Systems ENT: negative: Ear Pain, Ear Discharge, Nose Pain, Nose Discharge, Nose Congestion, Mouth Pain, Mouth Swelling, Throat Pain, Throat Swelling, Other Respiratory: Cough, Hemoptysis, Sputum. negative: Dry, Shortness of Breath, SOB with Excertion, Pleuritic Pain, Wheezing Cardiovascular: negative: chest pain, palpitations, orthopnea, paroxysmal nocturnal dyspnea, edema, light headedness, other Gastrointestinal: negative: Nausea, Vomiting, Abdominal Pain, Diarrhea, Constipation, Melena, Hematochezia, Other Genitourinary: negative: Dysuria, Frequency, Incontinence, Hematuria, Retention , Other Musculoskeletal: negative: Neck Pain, Shoulder Pain, Arm Pain, Back Pain, Hand Pain, Leg Pain, Foot Pain, Other Skin: negative: Rash, Lesions, Serjio, Bruising, Other - Medications/Allergies Allergies/Adverse Reactions: Allergies Allergy/AdvReac Type Severity Reaction Status Date / Time procaine [From Novocain] AdvReac Verified 12/13/18 22:12 procaine HCl [From Novocain] AdvReac Verified 12/13/18 22:12 Medications: Current Medications Acetaminophen (Tylenol) 650 mg PO Q4H PRN PRN Reason: Headache/Fever or Pain Stop: 12/18/18 06:09 Albuterol/Ipratropium (Duoneb) 3 ml NEB [id number] LYSSA Stop: 12/18/18 06:09 Last Admin: 12/14/18 10:20 Dose: 3 ml Artificial Tears (Tears Naturale) 2 drop EA EYE PRN PRN PRN Reason: Dry Eyes Atorvastatin Calcium (Lipitor) 80 mg PO HS [facility] Bisacodyl (Dulcolax) 10 mg [place] DAILYPRN PRN PRN Reason: Constipation Dextrose/Water (Dextrose 50%) 25 gm SLOW IVP PRN PRN PRN Reason: Hypoglycemia Digoxin (Lanoxin) 0.125 mg PO DAILY [facility] Last Admin: 12/14/18 08:20 Dose: 0.125 mg Docusate Sodium (Colace) 100 mg PO BID PRN PRN Reason: Constipation Escitalopram Oxalate (Lexapro) 20 mg PO DAILY [facility] Last Admin: 12/14/18 08:20 Dose: 20 mg Glucagon (Glucagon) 1 mg IM PRN PRN PRN Reason: Hypoglycemia Guaifenesin (Robitussin Sf) 200 mg PO Q4H PRN PRN Reason: Cough Hydralazine HCl (Apresoline) 10 mg SLOW IVP Q4H PRN PRN Reason: SBP > 180 and HR < 70 Dextrose/Water (D5w) 1,000 mls @ 0 mls/hr IV .Q0M PRN PRN Reason: Hypoglycemia Ceftriaxone Sodium 1 gm/ (Sodium Chloride) 100 mls @ 200 mls/hr IVPB 1500 [facility] Azithromycin 500 mg/ Sodium (Chloride) 250 mls @ 250 mls/hr IVPB 1500 [facility] Insulin Human Lispro (Humalog) 0 units SC .MILD SLIDING SCALE PRN PRN Reason: Mild Correctional Scale Loperamide HCl (Imodium) 2 mg PO PRN PRN PRN Reason: Diarrhea/Loose Stools Loratadine (Claritin) 10 mg PO DAILYPRN PRN PRN Reason: Sinus Symptoms Metoprolol Tartrate (Lopressor) 50 mg PO BID [facility] Last Admin: 12/14/18 08:19 Dose: 50 mg Nitroglycerin (Nitrostat) 0.4 mg SL PRN PRN PRN Reason: Chest Pain Ondansetron HCl (Zofran) 4 mg IVP Q6H PRN PRN Reason: Nausea/Vomiting Stop: 12/17/18 06:09 Ondansetron HCl (Zofran Odt) 4 mg SL Q6H PRN PRN Reason: Nausea/Vomiting Stop: 12/17/18 06:09 Pantoprazole Sodium (Protonix) 40 mg PO DAILY PRN PRN Reason: Indigestion Senna/Docusate Sodium (Senokot S) 2 tab PO BID PRN PRN Reason: Constipation Simethicone (Mylicon Chewable) 180 mg PO PCHS PRN PRN Reason: Gas Pain Sodium Chloride (Flush - Normal Saline) 10 ml IVF PRN PRN PRN Reason: Saline Flush Stop: 12/17/18 06:09 Sodium Chloride ([place] Nasal [place] 0.65%) 0 ml EA NARE QIDPRN PRN PRN Reason: Nasal Congestion Spironolactone (Aldactone) 25 mg PO 1500 LYSS[facility] Spironolactone (Aldactone) 25 mg PO DAILY [facility] Last Admin: 12/14/18 08:28 Dose: 25 mg Throat Lozenges (Cepastat Lozenges) 1 landry PO Q2H PRN PRN Reason: Sore Throat Torsemide (Demadex) 20 mg PO 1500 [facility] Torsemide (Demadex) 20 mg PO DAILY [facility] Last Admin: 12/14/18 08:55 Dose: 20 mg Zolpidem Tartrate (Ambien) 5 mg PO HSPRN PRN PRN Reason: Insomnia
[2018-12-14] MEDS: cefTRIAXone\\ROCEPHIN 1 GM in Sodium Chloride 0.9% 100 ML IVPB SCH (13:57)
[2018-12-14] MEDS: Azithromycin 500 MG in Sodium Chloride 0.9% 250 ML 250 ML IVPB SCH (15:26)
[2018-12-14] MEDS: Atorvastatin Calcium 40 MG TAB PO SCH (20:42)
[2018-12-14] MEDS: Acetaminophen 325 MG TAB PO PRN (20:46)
--- NOTE | 2018-12-15 01:30 | CON ---
DATE OF CONSULTATION: 12/14/2018 HISTORY OF PRESENT ILLNESS: Nelli Haines is an 83-year-old female. She is chronically anticoagulated for atrial fibrillation. She has had cough and chest congestion for several days, approaching a week. She was started on Augmentin, which led to diarrhea. She thought her cough might have been getting a little bit better when she developed hemoptysis and decided to come to the hospital. She is followed by Dr. Nuñez. Her daughter is a good friend of the [facility] family. Chest radiograph done over in [place] was suggestive of possibly an early infiltrate at the left base compared to the last study. Compared to old films, this definitely is new. She says she is feeling better and she stopped coughing up blood. PAST MEDICAL HISTORY: Remarkable for; 1. Atrial fibrillation with anticoagulation. 2. History of coronary stenting. 3. History of pacemaker. 4. History of bladder suspension. 5. History of ankle surgery. SOCIAL HISTORY: She is currently a nonsmoker and nondrinker with no drug use. FAMILY HISTORY: Not obtained. ALLERGIES: SHE REPORTS NO PRESCRIPTION DRUG ALLERGIES. SHE SAYS NOVOCAIN, SHE DOES NOT TOLERATE. MEDICATIONS: Prior to admission, she was on; 1. Lexapro. 2. Metoprolol. 3. Atorvastatin. 4. Eliquis. 5. Spironolactone. 6. Aspirin. 7. Torsemide. 8. Metformin. REVIEW OF SYSTEMS: Ten-point review of systems completed, otherwise negative. She denies chest discomfort, pleurisy, or having hemoptysis ever in the past. PHYSICAL EXAMINATION: VITAL SIGNS: Blood pressure is 131/78 this afternoon. She is afebrile. Heart rate is 85, respiratory rate is 19, oximetry is 91% to 95% on room air. HEENT: Pupils are equal. Sclerae anicteric. Extraocular movements are intact. Throat is clear. NECK: Supple. LUNGS: Remarkable for fine crackles at her left base. HEART: Regular rhythm. S1 and S2 are normal. No murmur, gallop, or rub. ABDOMEN: Soft and nontender. EXTREMITIES: Without clubbing, cyanosis, or edema. NEURO: Nonfocal. LABORATORY DATA: White count 6.9, hemoglobin 12.0, and platelets 181. Electrolytes are normal. IMPRESSION: Hemoptysis, appears minimum, this is secondary to tracheobronchitis ; perhaps, there is an early pneumonia. I agree with current antimicrobial therapy. This likely can be simplified tomorrow. It would not be unreasonable to go ahead and restart her anticoagulants, perhaps at a prophylactic dose for 4 to 5 days and then increase her to the full dose. She has not had anything suggestive of massive hemoptysis or anything that would be life-threatening. TIME SPENT: This is a 50-minute consult, with greater than 50% of the time was spent on the unit coordinating care. Job ID: [id number] [email or web address]
[2018-12-15 05:27] LABS: #Eosinphils 0.1 thou/uL (0.0-0.7); #Lymphocytes 1.7 thou/uL (1.20-3.40); #Monocytes 0.4 thou/uL (0.11-0.59); #Neutrophils 5.1 thou/uL (1.40-6.50); %Basophils 0.2 % (0.0-1.0); %Eosinophils 1.1 % (0.0-10.0); %Lymphocytes 23.1 % (21.0-51.0); %Monocytes 5.8 % (0.0-10.0); %Neutrophils 69.8 % (42.0-75.0); Hemoglobin 13.1 g/dL (12.0-16.0); Mean Corpuscular HGB CONC 32.7 g/dL (32.0-36.0); Mean Corpuscular Hemoglobin 31.8 pg (27.0-31.0); Mean Corpuscular Volume 97.3 fL (78.0-98.0); Mean Platelet Volume 7.2 fL (7.4-10.4); Platelet Count 197 thou/uL (130-400); RBC Distribution Width 13.4 % (11.5-14.5); Red Blood Cell (RBC) Count 4.12 mill/uL (4.20-5.40); White Blood Cell (WBC) Count 7.3 thou/uL (4.8-10.8)
[2018-12-15 05:49] LABS: Anion Gap 14 mmol/L (10-20); BUN (Urea Nitrogen) 27 mg/dL (9.8-20.1); Calc. Creatinine Clearance 66 mL/min (70-130); Calcium 9.5 mg/dL (7.8-10.44); Carbon Dioxide 32 mmol/L (23-31); Chloride 98 mmol/L (98-107); Estimated GFR-MDRD 50; Glucose 114 mg/dL (83-110); Potassium 4.1 mmol/L (3.5-5.1); Sodium 140 mmol/L (136-145)
[2018-12-15] MEDS: Apixaban 2.5 MG TAB PO SCH ×2 (09:27→20:03)
[2018-12-15] MEDS: Digoxin 0.125 MG TAB PO SCH (09:28)
[2018-12-15] MEDS: Metoprolol Tartrate 50 MG TAB PO SCH ×2 (09:29→20:04)
[2018-12-15] MEDS: Torsemide 20 MG TAB PO SCH ×2 (09:29→15:30)
[2018-12-15] MEDS: Escitalopram Oxalate 20 mg Tablet PO SCH (09:29)
[2018-12-15] MEDS: Spironolactone 25 MG TAB PO SCH ×2 (09:31→15:30)
[2018-12-15] MEDS: Nystatin 500,000 UNITS/5 ML UDCUP SSW SCH ×3 (12:05→20:04)
--- NOTE | 2018-12-15 12:11 | PDOC.PN ---
- Subjective Encounter Start Date: 12/15/18 Encounter Start Time: 09:00 pt has intermittent scant blood with sputum, no fever, less dyspnea - Objective Resuscitation Status - Order Detail: 12/13/18 20:19 Resuscitation Status Routine Resuscitation Status: FULL: Full Resuscitation MAR Reviewed: Yes Vital Signs & Weight: Vital Signs (12 hours) Temp Pulse Resp BP Pulse Ox 12/15/18 11:04 82 14 96 12/15/18 09:28 76 12/15/18 08:00 97 12/15/18 07:37 98.1 F 76 18 139/94 H 97 12/15/18 02:22 76 14 93 L Weight Weight 222 lb I&O: 12/14/18 12/15/18 12/16/18 06:59 06:59 06:59 Intake Total 490 1560 Balance 490 1560 Result Diagrams: 12/15/18 04:41 12/15/18 04:41 Additional Labs: Accuchecks 12/15/18 12/15/18 12/14/18 11:13 04:19 19:59 POC Glucose 156 H 116 H 173 H 12/14/18 15:29 POC Glucose 111 H Phys Exam - Physical Examination Constitutional: NAD HEENT: PERRLA, moist MMs, sclera anicteric Neck: no JVD, supple Respiratory: no rales, wheezing present Cardiovascular: RRR, no significant murmur, no rub Gastrointestinal: soft, non-tender, no distention, positive bowel sounds obesity+ Musculoskeletal: no edema, pulses present Neurological: non-focal, normal sensation, moves all 4 limbs Lymphatic: no nodes Psychiatric: normal affect, A&O x 3 Skin: no rash, normal turgor Dx/Plan (1) Community acquired bacterial pneumonia Code(s): J15.9 - UNSPECIFIED BACTERIAL PNEUMONIA Status: Acute (2) Anxiety and depression Code(s): F41.9 - ANXIETY DISORDER, UNSPECIFIED; F32.9 - MAJOR DEPRESSIVE DISORDER, SINGLE EPISODE, UNSPECIFIED Status: Chronic (3) Atrial fibrillation Code(s): I48.91 - UNSPECIFIED ATRIAL FIBRILLATION Status: Chronic (4) Chronic anticoagulation Code(s): Z79.01 - RESIDENTIAL (CURRENT) USE OF ANTICOAGULANTS Status: Chronic (5) Chronic stage c diastolic heart failure Code(s): I50.32 - CHRONIC DIASTOLIC (CONGESTIVE) HEART FAILURE Status: Chronic (6) Dyslipidemia Code(s): E78.5 - HYPERLIPIDEMIA, UNSPECIFIED Status: Chronic (7) Hypertension Code(s): I10 - ESSENTIAL (PRIMARY) HYPERTENSION Status: Chronic (8) Obesity (BMI 30-39.9) Code(s): E66.9 - OBESITY, UNSPECIFIED Status: Chronic - Plan cont current plan of care, continue antibiotics, respiratory therapy * will start low dose elliquis today * continue rocephin and azithromycin * pulmonary recommendation appreciated * medication reviewed as below * symptomatic treatment. Review of Systems - Review of Systems ENT: negative: Ear Pain, Ear Discharge, Nose Pain, Nose Discharge, Nose Congestion, Mouth Pain, Mouth Swelling, Throat Pain, Throat Swelling, Other Respiratory: Cough, Hemoptysis, SOB with Excertion, Sputum, Wheezing. negative : Dry, Shortness of Breath, Pleuritic Pain Cardiovascular: negative: chest pain, palpitations, orthopnea, paroxysmal nocturnal dyspnea, edema, light headedness, other Gastrointestinal: negative: Nausea, Vomiting, Abdominal Pain, Diarrhea, Constipation, Melena, Hematochezia, Other Genitourinary: negative: Dysuria, Frequency, Incontinence, Hematuria, Retention , Other Musculoskeletal: negative: Neck Pain, Shoulder Pain, Arm Pain, Back Pain, Hand Pain, Leg Pain, Foot Pain, Other Skin: negative: Rash, Lesions, Serjio, Bruising, Other - Medications/Allergies Allergies/Adverse Reactions: Allergies Allergy/AdvReac Type Severity Reaction Status Date / Time procaine [From Novocain] AdvReac Verified 12/13/18 22:12 procaine HCl [From Novocain] AdvReac Verified 12/13/18 22:12 Medications: Current Medications Acetaminophen (Tylenol) 650 mg PO Q4H PRN PRN Reason: Headache/Fever or Pain Stop: 12/18/18 06:09 Last Admin: 12/14/18 20:46 Dose: 650 mg Albuterol/Ipratropium (Duoneb) 3 ml NEB [id number] LYSSA Stop: 12/18/18 06:09 Last Admin: 12/15/18 11:04 Dose: 3 ml Apixaban (Eliquis) 2.5 mg PO BID [facility] Last Admin: 12/15/18 09:27 Dose: 2.5 mg Artificial Tears (Tears Naturale) 2 drop EA EYE PRN PRN PRN Reason: Dry Eyes Atorvastatin Calcium (Lipitor) 80 mg PO HS [facility] Last Admin: 12/14/18 20:42 Dose: 80 mg Bisacodyl (Dulcolax) 10 mg [place] DAILYPRN PRN PRN Reason: Constipation Dextrose/Water (Dextrose 50%) 25 gm SLOW IVP PRN PRN PRN Reason: Hypoglycemia Digoxin (Lanoxin) 0.125 mg PO DAILY [facility] Last Admin: 12/15/18 09:28 Dose: 0.125 mg Docusate Sodium (Colace) 100 mg PO BID PRN PRN Reason: Constipation Escitalopram Oxalate (Lexapro) 20 mg PO DAILY [facility] Last Admin: 12/15/18 09:29 Dose: 20 mg Glucagon (Glucagon) 1 mg IM PRN PRN PRN Reason: Hypoglycemia Guaifenesin (Robitussin Sf) 200 mg PO Q4H PRN PRN Reason: Cough Hydralazine HCl (Apresoline) 10 mg SLOW IVP Q4H PRN PRN Reason: SBP > 180 and HR < 70 Dextrose/Water (D5w) 1,000 mls @ 0 mls/hr IV .Q0M PRN PRN Reason: Hypoglycemia Ceftriaxone Sodium 1 gm/ (Sodium Chloride) 100 mls @ 200 mls/hr IVPB 1500 [facility] Last Admin: 12/14/18 13:57 Dose: 100 mls Azithromycin 500 mg/ Sodium (Chloride) 250 mls @ 250 mls/hr IVPB 1500 [facility] Last Admin: 12/14/18 15:26 Dose: 250 mls Insulin Human Lispro (Humalog) 0 units SC .MILD SLIDING SCALE PRN PRN Reason: Mild Correctional Scale Loperamide HCl (Imodium) 2 mg PO PRN PRN PRN Reason: Diarrhea/Loose Stools Loratadine (Claritin) 10 mg PO DAILYPRN PRN PRN Reason: Sinus Symptoms Last Admin: 12/14/18 20:46 Dose: 10 mg Metoprolol Tartrate (Lopressor) 50 mg PO BID [facility] Last Admin: 12/15/18 09:29 Dose: 50 mg Nitroglycerin (Nitrostat) 0.4 mg SL PRN PRN PRN Reason: Chest Pain Nystatin (Mycostatin) 500,000 units SSW QID [facility] Last Admin: 12/15/18 12:05 Dose: 500,000 units Ondansetron HCl (Zofran) 4 mg IVP Q6H PRN PRN Reason: Nausea/Vomiting Stop: 12/17/18 06:09 Ondansetron HCl (Zofran Odt) 4 mg SL Q6H PRN PRN Reason: Nausea/Vomiting Stop: 12/17/18 06:09 Pantoprazole Sodium (Protonix) 40 mg PO DAILY PRN PRN Reason: Indigestion Senna/Docusate Sodium (Senokot S) 2 tab PO BID PRN PRN Reason: Constipation Simethicone (Mylicon Chewable) 180 mg PO PCHS PRN PRN Reason: Gas Pain Sodium Chloride (Flush - Normal Saline) 10 ml IVF PRN PRN PRN Reason: Saline Flush Stop: 12/17/18 06:09 Last Admin: 12/15/18 09:33 Dose: 10 ml Sodium Chloride ([place] Nasal [place] 0.65%) 0 ml EA NARE QIDPRN PRN PRN Reason: Nasal Congestion Spironolactone (Aldactone) 25 mg PO 1500 [facility] Last Admin: 12/14/18 15:27 Dose: 25 mg Spironolactone (Aldactone) 25 mg PO DAILY [facility] Last Admin: 12/15/18 09:31 Dose: 25 mg Throat Lozenges (Cepastat Lozenges) 1 landry PO Q2H PRN PRN Reason: Sore Throat Torsemide (Demadex) 20 mg PO 1500 [facility] Last Admin: 12/14/18 15:27 Dose: 20 mg Torsemide (Demadex) 20 mg PO DAILY [facility] Last Admin: 12/15/18 09:29 Dose: 20 mg Zolpidem Tartrate (Ambien) 5 mg PO HSPRN PRN PRN Reason: Insomnia
[2018-12-15] MEDS ORDERED: Nystatin 100,000 Units/mL UDCUP SSW SCH (13:00)
[2018-12-15] MEDS: Azithromycin 500 MG in Sodium Chloride 0.9% 250 ML 250 ML IVPB SCH (14:10)
[2018-12-15] MEDS: cefTRIAXone\\ROCEPHIN 1 GM in Sodium Chloride 0.9% 100 ML IVPB SCH (15:29)
[2018-12-15] MEDS: Acetaminophen 325 MG TAB PO PRN (16:56)
[2018-12-15] MEDS: Atorvastatin Calcium 40 MG TAB PO SCH (20:03)
[2018-12-16] MEDS: Escitalopram Oxalate 20 mg Tablet PO SCH (08:29)
[2018-12-16] MEDS: Apixaban 2.5 MG TAB PO SCH (08:29)
[2018-12-16] MEDS: Nystatin 500,000 UNITS/5 ML UDCUP SSW SCH (08:29)
[2018-12-16] MEDS: Digoxin 0.125 MG TAB PO SCH (08:29)
[2018-12-16] MEDS: Spironolactone 25 MG TAB PO SCH (08:29)
[2018-12-16] MEDS: Torsemide 20 MG TAB PO SCH (08:30)
[2018-12-16] MEDS: Metoprolol Tartrate 50 MG TAB PO SCH (08:30)
--- NOTE | 2018-12-16 10:25 | DIS ---
DATE OF ADMISSION: 12/13/2018 DATE OF DISCHARGE: 12/16/2018 PRIMARY CARE PHYSICIAN: Dr. Konrad Nuñez. DISCHARGE DISPOSITION: Home. PRIMARY DISCHARGE DIAGNOSIS: Community-acquired bacterial pneumonia. SECONDARY DISCHARGE DIAGNOSES: Obesity with BMI 38, hypertension, dyslipidemia, chronic stage C, diastolic heart failure, chronic anticoagulation, atrial fibrillation, anxiety and depression, and chronic obstructive pulmonary disease/asthma. PRIMARY PROCEDURE/OPERATION: None. RADIOLOGICAL INVESTIGATION: Chest x-ray showed left middle lobe haziness/infiltration. SIGNIFICANT LABORATORY DATA: WBC 7.3, hemoglobin 13.1, and platelet 197. Sodium 140, potassium 4.1, BUN 27, creatinine 1.06, and calcium 9.5. Blood culture negative. Influenza screen negative. DISCHARGE MEDICATIONS: New medication; 1. Levaquin 750 mg p.o. daily for 7 days. 2. Mucinex 600 mg twice daily for 7 days. 3. Prednisone 20 mg b.i.d. for 7 days. 4. Dulera 2 puff inhalation b.i.d. 5. Ventolin inhaler 2 puffs q.6 hourly p.r.n. The patient will continue following medications; 1. Eliquis 5 mg p.o. b.i.d. 2. Aspirin 81 mg daily. 3. Lipitor 80 mg p.o. at bedtime. 4. Digoxin 0.125 mg p.o. daily. 5. Colace 100 mg b.i.d. 6. Lexapro 20 mg p.o. daily. 7. Metoprolol 50 mg p.o. b.i.d. 8. Nitroglycerin 0.4 mg sublingual p.r.n. 9. Protonix 40 mg p.o. daily. 10. Simethicone 180 mg p.o. after meals and at bedtime. 11. Aldactone 25 mg p.o. daily. 12. Torsemide 20 mg p.o. daily. CONTRAINDICATION: None. CODE STATUS: Full code. INPATIENT STOREROOM SUPERVISOR: Dr. Vazquez was consulted while in hospital. He recommended to repeat followup with chest x-ray upon discharge. DISCHARGE PLAN: Posthospital, the patient will follow up with Dr. Vazquez as well as Dr. Konrad Nuñez as instructed. HOSPITAL COURSE: An 83-year-old female with above-mentioned medical problem, who was admitted by Dr. Rincon. Please see his H and P for further details. This patient was having increasing shortness of breath, increasing cough for last few days and day before admission, the patient noticed hemoptysis and that is why she was alarmed and she decided to come to emergency room for evaluation. Initially, we kept on hold Eliquis, but Dr. Vazquez agreed to continue anticoagulation therapy. Dr. Vazquez saw this patient and he agreed with antibiotic therapy. While in hospital, she was given the DuoNeb therapy. We treated her with Rocephin and azithromycin. Upon discharge, we changed to p.o. levofloxacin. We also prescribed Mucinex, prednisone for a short course given her wheezing and shortness of breath associated with pneumonia. All cultures remained negative. Influenza screen remained negative. The patient is ambulatory and she is on room air. The patient wants to go home today and that is why we decided to let her go home today with followup with primary care physician and Dr. Vazquez. The patient is hemodynamically stable. I have seen and examined the patient at bedside today. PHYSICAL EXAMINATION: VITAL SIGNS: Currently, temperature, 97.8, pulse 77, respiratory rate 18, saturation 93% on room air, and blood pressure 124/64. Weight 222 pounds. GENERAL: The patient is currently alert and awake. No obvious acute distress. HEENT: Head, normocephalic and atraumatic. Eyes; pupils are round and reactive to light. LUNGS: Occasional wheezing heard, but no rales. CARDIAC: S1 and S2. Regular without any murmur. ABDOMEN: Soft and benign. EXTREMITIES: No edema. NEUROLOGIC: Nonfocal examination. Overall, the patient is medically stable for discharge. Plan of care discussed with the patient and family member at bedside and agreed with discharge today. Job ID: [id number]
[2018-12-16 11:02] VITALS: BP 130/78; TEMP 98
== END 2018-12-16 11:32 | disposition home or self-care (01) | DRG 194 ==
LOC: ERS 16:27 → T4-B 17:50
PROVIDERS: ADMIT Family Medicine; ATTEND Family Medicine
DX: J15.9 Unspecified bacterial pneumonia (principal); R04.2 Hemoptysis; I50.32 Chronic diastolic (congestive) heart failure; J44.0 Chronic obstructive pulmonary disease with (acute) lower respiratory infection; E11.9 Type 2 diabetes mellitus without complications; F41.9 Anxiety disorder, unspecified; F32.9 Major depressive disorder, single episode, unspecified; I11.0 Hypertensive heart disease with heart failure; I48.91 Unspecified atrial fibrillation; E78.00 Pure hypercholesterolemia, unspecified; I25.10 Atherosclerotic heart disease of native coronary artery without angina pectoris; G47.33 Obstructive sleep apnea (adult) (pediatric); E66.9 Obesity, unspecified; Z68.38 Body mass index [BMI] 38.0-38.9, adult; Z95.0 Presence of cardiac pacemaker; Z79.01 Long term (current) use of anticoagulants; Z79.82 Long term (current) use of aspirin; Z79.84 Long term (current) use of oral hypoglycemic drugs; Z79.899 Other long term (current) drug therapy
CPT/HCPCS: 36415; 36416; 80048; 85025; 93005; 94640; J0456; J0696; J3490; J7050; J7620

== ENCOUNTER 2019-01-07 09:57 | Outpatient (CLI) | payer MEDICARE ==
--- NOTE | 2019-01-07 10:41 | RAD ---
2 VIEW CHEST: Date: 01/07/19 HISTORY: Dyspnea. COMPARISON: 12/13/18. FINDINGS: Mild cardiomegaly with transvenous pacemaker leads again noted. Lungs appear clear. No focal infiltra te identified. The infiltrate in the right mid lung seen on the prior study is no longer apparent. Va scular markings normal. Degenerative spine changes again noted. 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 IMPRESSION: No acute finding. 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 POS: OFF
== END 2019-01-07 09:58 | disposition home or self-care (01) ==
LOC: RAD 09:57
PROVIDERS: ATTEND Internal Medicine Critical Care Medicine
DX: R06.00 Dyspnea, unspecified (principal); K44.9 Diaphragmatic hernia without obstruction or gangrene; I51.7 Cardiomegaly
CPT/HCPCS: 71046

== ENCOUNTER 2019-04-27 13:16 | Outpatient (CLI) | payer MEDICARE ==
--- NOTE | 2019-05-01 14:13 | MMO ---
Bilateral MAMMO Bilat Screen [facility]. CLINICAL HISTORY: Patient is 84 years old and is seen for screening. The patient has the following family history of breast cancer: sister, at age 30, malignant (generic) and maternal aunt, malignant (generic). The patient has no personal history of cancer. VIEWS: The views performed were: bilateral craniocaudal with tomosynthesis; bilateral mediolateral oblique with tomosynthesis; and left mediolateral oblique. FILMS COMPARED: The present examination has been compared to prior imaging studies performed at [facility] on 08/03/2003. This study has been interpreted with the assistance of computer-aided detection. MAMMOGRAM FINDINGS: There are scattered fibroglandular densities. There are benign appearing calcifications seen in both breasts. There are no suspicious masses, suspicious calcifications, or new areas of architectural distortion. IMPRESSION: THERE IS NO MAMMOGRAPHIC EVIDENCE OF MALIGNANCY. A ROUTINE FOLLOW-UP MAMMOGRAM IN 1 YEAR IS RECOMMENDED. THE RESULTS OF THIS EXAM WERE SENT TO THE PATIENT. ACR BI-RADS Category 2 - Benign finding MAMMOGRAPHY NOTE: 1. A negative mammogram report should not delay a biopsy if a dominant of clinically suspicious mass is present. 2. Approximately 10% to 15% of breast cancers are not detected by mammography. 3. Adenosis and dense breasts may obscure an underlying neoplasm. Reported by: MARITZA MOE MD Electonically Signed: [id number]
== END 2019-04-27 13:17 | disposition home or self-care (01) ==
LOC: BICMAMMO 13:16
PROVIDERS: ATTEND Family Medicine
DX: Z12.31 Encounter for screening mammogram for malignant neoplasm of breast (principal)
CPT/HCPCS: 77063; 77067

== ENCOUNTER 2021-06-12 14:56 | Outpatient (CLI) | payer MEDICARE | END 2021-06-12 14:57 | disposition home or self-care (01) | LOC: BICRAD 14:56 | PROVIDERS: ATTEND Nurse Practitioner Family | DX: I50.32 Chronic diastolic (congestive) heart failure (principal) | CPT/HCPCS: 71046 ==

== ENCOUNTER 2022-10-14 15:36 | Inpatient (IN) | payer MEDICARE ==
[2022-10-14 17:47] VITALS: BMI 40.5
[2022-10-14] MEDS ORDERED: Ondansetron PF 4 MG/2 ML Vial IVP PRN (18:45)
[2022-10-14] MEDS ORDERED: Sodium Chloride 0.9% 1,000 ML IV SCH (19:00)
[2022-10-14] MEDS ORDERED: Acetaminophen 325 MG TAB PO PRN (20:30)
[2022-10-14] MEDS ORDERED: Famotidine 20 MG TAB PO PRN (20:30)
[2022-10-14] MEDS ORDERED: hydrALAZINE 20 MG/ML VIAL SLOW IVP PRN (20:30)
[2022-10-14] MEDS ORDERED: Ondansetron ODT 4 MG TAB PO PRN (20:30)
[2022-10-14] MEDS: Atorvastatin Calcium 40 MG TAB PO SCH (22:06)
[2022-10-14] MEDS: Meclizine HCl 25 MG TAB PO PRN (22:10)
[2022-10-15] MEDS ORDERED: Melatonin 3 MG TAB PO PRN (00:19)
[2022-10-15 06:27] LABS: #Eosinphils 0.1 thou/uL (0.0-0.7); #Lymphocytes 1.4 thou/uL (1.20-3.40); #Monocytes 0.3 thou/uL (0.11-0.59); #Neutrophils 3.8 thou/uL (1.40-6.50); %Basophils 0.3 % (0.0-1.0); %Eosinophils 1.5 % (0.0-10.0); %Lymphocytes 24.4 % (21.0-51.0); %Monocytes 5.5 % (0.0-10.0); %Neutrophils 68.4 % (42.0-75.0); Hemoglobin 12.7 g/dL (12.0-16.0); Mean Corpuscular Hemoglobin 30.6 pg (27.0-31.0); Mean Corpuscular Volume 95.5 fl (78.0-98.0); Mean Platelet Volume 7.3 fL (7.4-10.4); Platelet Count 165 10x3/uL (130-400); RBC Distribution Width 14.2 % (11.5-14.5); Red Blood Cell (RBC) Count 4.15 mill/uL (4.20-5.40); White Blood Cell (WBC) Count 5.6 10x3/uL (4.8-10.8)
[2022-10-15 06:46] LABS: Hemoglobin A1c 6.1 % (4.0-6.0)
[2022-10-15 06:49] LABS: Phosphorus 3.7 mg/dL (2.3-4.7)
[2022-10-15 07:05] LABS: Calcium 8.7 mg/dL (7.8-10.44); Chloride 108 mmol/L (98-107); Potassium 4.1 mmol/L (3.5-5.1); Sodium 140 mmol/L (136-145)
[2022-10-15 07:06] LABS: Glucose 111 mg/dL (83-110); Triglycerides 99 mg/dL (Less than 150)
[2022-10-15 07:08] LABS: Anion Gap 13 mmol/L (10-20); Carbon Dioxide 23 mmol/L (23-31)
[2022-10-15 07:09] LABS: Calc. Creatinine Clearance 73 mL/min (70-130); Estimated GFR 60
[2022-10-15 07:10] LABS: BUN (Urea Nitrogen) 21 mg/dL (9.8-20.1)
[2022-10-15 07:11] LABS: Cholesterol 129 mg/dl (< 200 Desired); Magnesium 2.3 mg/dL (1.6-2.6)
[2022-10-15 07:12] LABS: Cardiac Risk 3.1 (Less than 4.5); HDL Cholesterol 42 mg/dL (>60 Neg Risk); LDL Cholesterol, Calculated 67 mg/dL
[2022-10-15] MEDS ORDERED: Digoxin 0.125 MG TAB PO SCH (09:00)
[2022-10-15] MEDS: Torsemide 10 MG TAB PO SCH (09:06)
[2022-10-15] MEDS: Loratadine 10 MG TAB PO SCH (09:53)
[2022-10-15] MEDS: Docusate 100 MG CAP PO SCH (09:54)
[2022-10-15] MEDS: Escitalopram Oxalate 20 mg Tablet PO SCH (09:54)
[2022-10-15] MEDS: Empagliflozin 10 MG TAB PO SCH (09:54)
[2022-10-15] MEDS: Spironolactone 25 MG TAB PO SCH (09:54)
[2022-10-15] MEDS: Aspirin 81 mg Enteric Coated Tablet PO SCH (09:55)
[2022-10-15] MEDS: Apixaban 5 MG TAB PO SCH (20:47)
[2022-10-15] MEDS: Atorvastatin Calcium 40 MG TAB PO SCH (20:47)
[2022-10-15] MEDS: Meclizine HCl 25 MG TAB PO PRN (20:47)
[2022-10-16 05:28] LABS: #Eosinphils 0.1 thou/uL (0.0-0.7); #Lymphocytes 1.3 thou/uL (1.20-3.40); #Monocytes 0.4 thou/uL (0.11-0.59); #Neutrophils 4.3 thou/uL (1.40-6.50); %Basophils 0.3 % (0.0-1.0); %Eosinophils 1.7 % (0.0-10.0); %Lymphocytes 21.2 % (21.0-51.0); %Monocytes 6.2 % (0.0-10.0); %Neutrophils 70.6 % (42.0-75.0); Hemoglobin 12.3 g/dL (12.0-16.0); Mean Corpuscular HGB CONC 30.7 g/dL (32.0-36.0); Mean Corpuscular Hemoglobin 29.2 pg (27.0-31.0); Mean Corpuscular Volume 95.1 fl (78.0-98.0); Mean Platelet Volume 7.1 fL (7.4-10.4); Platelet Count 167 10x3/uL (130-400); RBC Distribution Width 14.2 % (11.5-14.5); White Blood Cell (WBC) Count 6.1 10x3/uL (4.8-10.8)
[2022-10-16 05:43] LABS: Anion Gap 10 mmol/L (10-20); BUN (Urea Nitrogen) 19 mg/dL (9.8-20.1); Calc. Creatinine Clearance 88 mL/min (70-130); Calcium 9.1 mg/dL (7.8-10.44); Carbon Dioxide 25 mmol/L (23-31); Chloride 107 mmol/L (98-107); Estimated GFR 76; Glucose 119 mg/dL (83-110); Potassium 3.9 mmol/L (3.5-5.1); Sodium 138 mmol/L (136-145)
[2022-10-16] MEDS: Loratadine 10 MG TAB PO SCH (08:46)
[2022-10-16] MEDS: Aspirin 81 mg Enteric Coated Tablet PO SCH (08:46)
[2022-10-16] MEDS: Escitalopram Oxalate 20 mg Tablet PO SCH (08:46)
[2022-10-16] MEDS: Apixaban 5 MG TAB PO SCH (08:46)
[2022-10-16] MEDS: Docusate 100 MG CAP PO SCH (08:46)
[2022-10-16] MEDS: Empagliflozin 10 MG TAB PO SCH (08:46)
[2022-10-16] MEDS: Spironolactone 25 MG TAB PO SCH (09:26)
[2022-10-16] MEDS: Torsemide 10 MG TAB PO SCH (09:26)
[2022-10-16] MEDS: Meclizine HCl 25 MG TAB PO PRN (09:30)
[2022-10-16 11:17] VITALS: BP 130/77; TEMP 97.4
== END 2022-10-16 12:45 | disposition home or self-care (01) | DRG 149 ==
LOC: NEURO 16:49 → OBSVTOIN 10-15 15:43
PROVIDERS: ADMIT Internal Medicine; ATTEND Internal Medicine
PROC: 5A09357 Assistance with Respiratory Ventilation, Less than 24 Consecutive Hours, Continuous Positive Airway Pressure (ICD-10-PCS; principal; 2022-10-15)
DX: H81.10 Benign paroxysmal vertigo, unspecified ear (principal); I50.32 Chronic diastolic (congestive) heart failure; I48.20 Chronic atrial fibrillation, unspecified; Z68.41 Body mass index [BMI] 40.0-44.9, adult; I25.10 Atherosclerotic heart disease of native coronary artery without angina pectoris; E66.9 Obesity, unspecified; E78.5 Hyperlipidemia, unspecified; I11.0 Hypertensive heart disease with heart failure; Z79.01 Long term (current) use of anticoagulants; Z95.5 Presence of coronary angioplasty implant and graft; Z79.899 Other long term (current) drug therapy; Z95.0 Presence of cardiac pacemaker; Z98.890 Other specified postprocedural states
CPT/HCPCS: 36415; 70450; 80048; 80061; 83036; 83735; 84100; 84443; 85025; 93306; G0378; J7050

== ENCOUNTER 2024-08-28 12:22 | Outpatient (CLI) | payer MEDICARE ==
[2024-08-28 13:45] LABS: #Basophils Less than 0.03 10x3/uL (0.0-0.2); %Basophils 0.2 % (0.0-1.0); %Eosinophils 0.5 % (0.0-10.0); %Lymphocytes 21.5 % (21.0-51.0); %Monocytes 5.7 % (0.0-10.0); %Neutrophils 71.5 % (42.0-75.0); Hemoglobin 13.2 g/dL (12.0-16.0); Mean Corpuscular HGB CONC 32.2 g/dL (32.0-36.0); Mean Corpuscular Hemoglobin 29.9 pg (27.0-31.0); Mean Platelet Volume 9.5 fL (7.4-10.4); Platelet Count 184 10x3/uL (130-400); RBC Distribution Width 15.5 % (11.5-14.5); Red Blood Cell (RBC) Count 4.41 mill/uL (4.20-5.40)
[2024-08-28 14:02] LABS: ALT (SGPT) 10 U/L (Less than 34); AST (SGOT) 19 U/L (11-34); Albumin 3.6 g/dL (3.1-4.5); Alkaline Phosphatase 81 U/L (40-110); Anion Gap 12 mmol/L (10-20); BUN (Urea Nitrogen) 23 mg/dL (9.8-20.1); Bilirubin, Total 0.5 mg/dL (0.3-1.2); Calc. Creatinine Clearance 0 mL/min (70-130); Calcium 9.3 mg/dL (7.8-10.44); Carbon Dioxide 28 mmol/L (23-31); Chloride 104 mmol/L (98-107); Estimated GFR 48; Globulin 3.4 g/dL (2.4-3.5); Glucose 95 mg/dL (83-110); Sodium 140 mmol/L (136-145)
== END 2024-08-28 12:23 | disposition home or self-care (01) ==
LOC: LABBT 12:22
PROVIDERS: ATTEND Internal Medicine Cardiovascular Disease
DX: Z01.812 Encounter for preprocedural laboratory examination (principal); R94.39 Abnormal result of other cardiovascular function study
CPT/HCPCS: 80053; 85025

== ENCOUNTER 2024-08-29 13:34 | Inpatient (IN) | payer MEDICARE ==
[2024-08-29 14:21] LABS: #Basophils Less than 0.03 10x3/uL (0.0-0.2); %Basophils 0.2 % (0.0-1.0); %Eosinophils 0.5 % (0.0-10.0); %Lymphocytes 19.1 % (21.0-51.0); %Monocytes 5.7 % (0.0-10.0); %Neutrophils 74.1 % (42.0-75.0); Hematocrit 38.2 % (36.0-47.0); Hemoglobin 12.1 g/dL (12.0-16.0); Mean Corpuscular HGB CONC 31.7 g/dL (32.0-36.0); Mean Corpuscular Hemoglobin 29.7 pg (27.0-31.0); Mean Corpuscular Volume 93.9 fL (78.0-98.0); Mean Platelet Volume 9.2 fL (7.4-10.4); Platelet Count 173 10x3/uL (130-400); RBC Distribution Width 15.7 % (11.5-14.5); Red Blood Cell (RBC) Count 4.07 mill/uL (4.20-5.40)
[2024-08-29 14:35] LABS: Prothrombin Time 13.4 sec (12.0-14.7)
[2024-08-29 14:41] LABS: ALT (SGPT) 10 U/L (Less than 34); AST (SGOT) 22 U/L (11-34); Albumin 3.3 g/dL (3.1-4.5); Alkaline Phosphatase 72 U/L (40-110); Anion Gap 13 mmol/L (10-20); BUN (Urea Nitrogen) 20 mg/dL (9.8-20.1); Bilirubin, Total 0.4 mg/dL (0.3-1.2); Calc. Creatinine Clearance 0 mL/min (70-130); Calcium 8.9 mg/dL (7.8-10.44); Carbon Dioxide 25 mmol/L (23-31); Chloride 106 mmol/L (98-107); Estimated GFR 51; Globulin 3.4 g/dL (2.4-3.5); Glucose 97 mg/dL (83-110); Potassium 4.2 mmol/L (3.5-5.1); Protein, Total 6.7 g/dL (5.8-8.1); Sodium 140 mmol/L (136-145); Troponin I 0.058 ng/mL (< 0.028)
[2024-08-29] MEDS ORDERED: Enoxaparin 100 MG (1 mL) SYRINGE ONE (17:19)
[2024-08-29 19:00] LABS: Troponin I 0.072 ng/mL (< 0.028)
[2024-08-29] MEDS ORDERED: Nitroglycerin 0.4 MG TAB (25 Tab Bottle) SL PRN (19:00)
[2024-08-29] MEDS ORDERED: Ondansetron PF 4 MG/2 ML Vial IVP PRN (19:00)
[2024-08-29] MEDS ORDERED: traMADol HCl 50 MG TAB PO PRN (19:00)
[2024-08-29] MEDS ORDERED: Enoxaparin 80 MG (0.8 mL) SYRINGE SC SCH (19:15)
[2024-08-29 20:05] VITALS: BMI 36.1
[2024-08-29 21:09] LABS: Troponin I 0.056 ng/mL (< 0.028)
[2024-08-29] MEDS: Famotidine 20 MG TAB PO SCH (21:27)
[2024-08-30 04:36] LABS: #Basophils Less than 0.03 10x3/uL (0.0-0.2); %Basophils 0.2 % (0.0-1.0); %Eosinophils 0.8 % (0.0-10.0); %Lymphocytes 26.3 % (21.0-51.0); %Monocytes 6.4 % (0.0-10.0); %Neutrophils 66.1 % (42.0-75.0); Hematocrit 38.5 % (36.0-47.0); Hemoglobin 12.2 g/dL (12.0-16.0); Mean Corpuscular HGB CONC 31.7 g/dL (32.0-36.0); Mean Corpuscular Hemoglobin 29.4 pg (27.0-31.0); Mean Corpuscular Volume 92.8 fL (78.0-98.0); Mean Platelet Volume 9.1 fL (7.4-10.4); Platelet Count 155 10x3/uL (130-400); RBC Distribution Width 15.8 % (11.5-14.5); Red Blood Cell (RBC) Count 4.15 mill/uL (4.20-5.40)
[2024-08-30 05:16] LABS: Anion Gap 10 mmol/L (10-20); BUN (Urea Nitrogen) 19 mg/dL (9.8-20.1); Calc. Creatinine Clearance 69 mL/min (70-130); Calcium 8.8 mg/dL (7.8-10.44); Carbon Dioxide 25 mmol/L (23-31); Chloride 109 mmol/L (98-107); Estimated GFR 66; Glucose 100 mg/dL (83-110); Potassium 4.3 mmol/L (3.5-5.1); Sodium 140 mmol/L (136-145)
[2024-08-30] MEDS: Aspirin Chewable 81 MG TAB PO SCH (08:50)
[2024-08-30] MEDS: Acetaminophen 325 MG TAB PO PRN (12:50)
[2024-08-30] MEDS ORDERED: [UNRECOGNIZED DRUG - OTHER] FS SCH (14:15)
[2024-08-31] MEDS: Sodium Chloride 0.9% 500 ML IV SCH (00:04)
[2024-08-31] MEDS: Digoxin 0.125 MG TAB PO SCH ×2 (06:10→06:14)
[2024-08-31] MEDS: Metoprolol Succinate XL 25 MG ER.TAB PO SCH ×2 (06:11→06:14)
[2024-08-31] MEDS: Escitalopram Oxalate 20 mg Tablet PO SCH ×2 (06:13→14:35)
[2024-08-31] MEDS: Ezetimibe 10 MG TAB PO SCH ×2 (06:13→14:35)
[2024-08-31] MEDS: Spironolactone 25 MG TAB PO SCH ×2 (06:13→14:36)
[2024-08-31] MEDS: Rosuvastatin 10 MG TAB PO SCH ×2 (06:13→14:35)
[2024-08-31] MEDS: Famotidine 20 MG TAB PO SCH (06:13)
[2024-08-31] MEDS ORDERED: fentaNYL 50 mcg/mL 1 mL Vial ONE (06:31)
[2024-08-31] MEDS ORDERED: Nitroglycerin 50 MG/250 ML BOT 250 ML ONE (06:32)
[2024-08-31] MEDS ORDERED: Heparin 10,000 UNITS/ 10 ML VIAL ONE ×2 (06:32→07:58)
[2024-08-31] MEDS ORDERED: Midazolam HCl 2 mg/2 ml Vial ONE (06:32)
[2024-08-31] MEDS ORDERED: Metoprolol Tartrate 5 MG (5 mL) VIAL ONE (07:32)
[2024-08-31] MEDS ORDERED: EPINEPHrine 1 MG/10 ML Abboject SYRINGE ONE (07:50)
[2024-08-31] MEDS ORDERED: PHENYLEPHRINE-NS 100 MCG/ML 10 ML SYRINGE ONE (07:51)
[2024-08-31] MEDS ORDERED: Empagliflozin 10 MG TAB PO SCH (09:00)
[2024-08-31] MEDS ORDERED: Clopidogrel Bisulfate 300 MG TAB ONE (09:05)
[2024-08-31] MEDS: Sodium Chloride 0.9% 1,000 ML IV SCH (14:36)
[2024-08-31] MEDS: Aspirin 81 mg Enteric Coated Tablet PO SCH (19:18)
[2024-09-01 04:45] LABS: #Basophils Less than 0.03 10x3/uL (0.0-0.2); %Basophils 0.2 % (0.0-1.0); %Eosinophils 0.9 % (0.0-10.0); %Lymphocytes 17.5 % (21.0-51.0); %Monocytes 6.4 % (0.0-10.0); %Neutrophils 74.7 % (42.0-75.0); Hematocrit 35.7 % (36.0-47.0); Hemoglobin 11.4 g/dL (12.0-16.0); Mean Corpuscular HGB CONC 31.9 g/dL (32.0-36.0); Mean Corpuscular Hemoglobin 29.5 pg (27.0-31.0); Mean Corpuscular Volume 92.2 fL (78.0-98.0); Mean Platelet Volume 9.6 fL (7.4-10.4); Platelet Count 170 10x3/uL (130-400); Red Blood Cell (RBC) Count 3.87 mill/uL (4.20-5.40)
[2024-09-01 05:12] LABS: ALT (SGPT) 9 U/L (Less than 34); AST (SGOT) 20 U/L (11-34); Albumin 2.9 g/dL (3.1-4.5); Alkaline Phosphatase 64 U/L (40-110); Anion Gap 12 mmol/L (10-20); BUN (Urea Nitrogen) 12 mg/dL (9.8-20.1); Bilirubin, Total 0.8 mg/dL (0.3-1.2); Calc. Creatinine Clearance 74 mL/min (70-130); Calcium 8.7 mg/dL (7.8-10.44); Carbon Dioxide 23 mmol/L (23-31); Cardiac Risk 2.6 (Less than 4.5); Chloride 108 mmol/L (98-107); Cholesterol 118 mg/dl (< 200 Desired); Estimated GFR 71; Glucose 104 mg/dL (83-110); HDL Cholesterol 46 mg/dL (>60 Neg Risk); LDL Cholesterol, Calculated 59 mg/dL; Potassium 4.1 mmol/L (3.5-5.1); Protein, Total 5.9 g/dL (5.8-8.1); Sodium 139 mmol/L (136-145); Triglycerides 67 mg/dL (Less than 150)
[2024-09-01] MEDS: Clopidogrel Bisulfate 75 MG TAB PO SCH (09:43)
[2024-09-01 12:06] VITALS: TEMP 98
[2024-09-01 13:14] VITALS: BP 136/67
[2024-09-02] MEDS ORDERED: Aspirin 81 mg Enteric Coated Tablet PO SCH (09:00)
[2024-09-03] MEDS ORDERED: Torsemide 10 MG TAB PO SCH (09:00)
[2024-09-03] MEDS ORDERED: Empagliflozin 10 MG TAB PO SCH (09:00)
[2024-09-03] MEDS ORDERED: Apixaban 5 MG TAB PO SCH (21:00)
== END 2024-09-01 13:25 | disposition home or self-care (01) | DRG 322 ==
LOC: ERS 13:34 → 2NO 17:42
PROVIDERS: ADMIT Internal Medicine; ATTEND Student in an Organized Health Care Education/Training Program
PROC: 4A023N7 Measurement of Cardiac Sampling and Pressure, Left Heart, Percutaneous Approach (ICD-10-PCS; principal; 2024-08-29)
PROC: 027034Z Dilation of Coronary Artery, One Artery with Drug-eluting Intraluminal Device, Percutaneous Approach (ICD-10-PCS; 2024-08-29)
PROC: B2101ZZ Fluoroscopy of Single Coronary Artery using Low Osmolar Contrast (ICD-10-PCS; 2024-08-29)
PROC: 5A09357 Assistance with Respiratory Ventilation, Less than 24 Consecutive Hours, Continuous Positive Airway Pressure (ICD-10-PCS; 2024-08-29)
DX: I25.110 Atherosclerotic heart disease of native coronary artery with unstable angina pectoris (principal); I50.32 Chronic diastolic (congestive) heart failure; T82.855A Stenosis of coronary artery stent, initial encounter; I48.0 Paroxysmal atrial fibrillation; I11.0 Hypertensive heart disease with heart failure; E78.5 Hyperlipidemia, unspecified; E87.5 Hyperkalemia; I49.5 Sick sinus syndrome; F41.9 Anxiety disorder, unspecified; E66.9 Obesity, unspecified; R94.39 Abnormal result of other cardiovascular function study; Z95.5 Presence of coronary angioplasty implant and graft; Z95.0 Presence of cardiac pacemaker; Z88.8 Allergy status to other drugs, medicaments and biological substances; Z98.890 Other specified postprocedural states; Z01.812 Encounter for preprocedural laboratory examination
CPT/HCPCS: 36415; 71045; 80048; 80053; 80061; 84484; 85025; 85347; 85610; 85730; 93005; 93010; 93798; 96372; C1769; C1874; C1887; C1894; J0171; J1644; J1650; J2250; J3010; J7030